=== PATIENT | female | born 1970 | race Caucasian/White ===

== ENCOUNTER 2019-06-05 11:20 | Emergency (ER) | payer MEDICAID, OTHER, SELFPAY ==
[~2019-06-05] VITALS: Ht 172.7 cm; Wt 70.0 kg
[2019-06-05 12:10] LABS: BASOPHILS # (AUTO) 0.02 x10^3/uL (0-0.1); BASOPHILS % (AUTO) 0 % (0-1); EOSINOPHILS # (AUTO) 0.02 x10^3/uL (0-0.4); EOSINOPHILS % (AUTO) 0 % (1-7); LYMPHOCYTES # (AUTO) 1.26 x10^3/uL (1-3.4); LYMPHOCYTES % (AUTO) 15 % (22-44); MD NO; MEAN CORPUSCULAR HEMOGLOBIN 31.8 pg (27.0-34.8); MEAN CORPUSCULAR HGB CONC 34.4 g/dL (32.4-35.8); MEAN CORPUSCULAR VOLUME 92.3 fL (80-100); MEAN PLATELET VOLUME 7.6 fL (7.4-10.4); MONOCYTES # (AUTO) 0.59 x10^3/uL (0.2-0.8); MONOCYTES % (AUTO) 7 % (2-9); NEUTROPHILS # (AUTO) 6.44 x10^3/uL (1.8-6.8); NEUTROPHILS % (AUTO) 77 % (42-75); PLATELET COUNT 418 x10^3/uL (130-400); RED BLOOD COUNT 4.32 x10^6/uL (3.82-5.3); RED CELL DISTRIBUTION WIDTH 13.2 % (9.6-15.2)
[2019-06-05 12:17] LABS: ALBUMIN 4.4 g/dL (3.4-5.0); ANION GAP 12 mmol/L (5-15); CALCIUM 9.4 mg/dL (8.5-10.1); CHLORIDE 108 mmol/L (98-107); SALICYLATE LEVEL 1.9 mg/dL (2.8-20.0)
[2019-06-05 12:24] LABS: CREATININE 0.86 mg/dL (0.55-1.02)
--- NOTE | 2019-06-05 12:24 | NUR ---
psych nurse at bedside.
[2019-06-05] MEDS ORDERED: OLANZAPINE 5 MG TABLET ONE ×2 (12:44→21:36)
[2019-06-05] MEDS ORDERED: hydrOXyzine 50MG TABLET ONE (12:44)
[2019-06-05] MEDS: OLANZAPINE 5 MG TABLET PO SCH ×2 (12:46→21:43)
[2019-06-05] MEDS ORDERED: HYDROXYZINE PAMOATE 50MG CAP PO PRN (13:00)
[2019-06-05] MEDS ORDERED: TRAZODONE 50MG TABLET PO PRN (13:00)
[2019-06-05 13:01] LABS: AMPHETAMINE SCREEN, URINE Negative (Negative); BARBITURATE SCREEN, URINE Negative (Negative); BENZODIAZEPINE SCREEN, URINE Positive (Negative); CANNABINOID SCREEN, URINE Negative (Negative); COCAINE SCREEN, URINE Negative (Negative); METHADONE SCREEN, URINE Negative (Negative); OPIATE SCREEN, URINE Negative (Negative)
--- NOTE | 2019-06-05 13:24 | NUR ---
BREAK RN: PT UPRIGHT ON GURNEY AWAKE, CALM & COOPERATIVE, WATCHING TV, ATE MEAL TRAY, RESPONDS APPROP TO STAFF, NAD, NO NEEDS AT THIS TIME, PT REMAINS IN SAFE ENVIRONMENT, SITTER IN VIEW.
--- NOTE | 2019-06-05 14:45 | NUR ---
PT WATCHING TV QUIETLY
--- NOTE | 2019-06-05 18:08 | NUR ---
PACKET FAXED TO [facility]
--- NOTE | 2019-06-05 18:25 | NUR ---
friend that pt lives with called and left her number: austin [phone]
--- NOTE | 2019-06-05 19:14 | NUR ---
Pt resting in room, nadn, Pt has equal chest rise and brisk cap refill. Pt has sitter outside room for continous safety monitoring.
--- NOTE | 2019-06-05 20:13 | NUR ---
Pt resting in room, nadn, Pt has equal chest rise and brisk cap refill. Pt has sitter outside room for continous safety monitoring.
--- NOTE | 2019-06-05 21:50 | NUR ---
Pt resting in room, nadn, Pt has equal chest rise and brisk cap refill. Pt has sitter outside room for continous safety monitoring. Pt medicated per emar.
--- NOTE | 2019-06-06 00:09 | NUR ---
REPORT TO CRUZ EDDY.
--- NOTE | 2019-06-06 02:00 | NUR ---
PT RESTING IN BED, PT ROOM IS SI SECURE WITH SITTER AT PT BED SIDE?
--- NOTE | 2019-06-06 04:00 | NUR ---
PT SLEEPING IN BED, PT ROOM IS SI SECURE WITH SITTER AT PT BED SIDE?
--- NOTE | 2019-06-06 05:25 | NUR ---
PT RESTING IN BED, PT ROOM IS SI SECURE WITH SITTER AT PT BED SIDE?
--- NOTE | 2019-06-06 06:35 | NUR ---
PT RESTING IN BED, PT ROOM IS SI SECURE WITH SITTER AT PT BED SIDE?
--- NOTE | 2019-06-06 07:10 | NUR ---
REPORT RECIEVED FROM NOC RN, PT RESTING COMFORTABLY ON HOSPITAL BED. MEAL TRAY ORDERED, NAD NOTED
[2019-06-06] MEDS ORDERED: OLANZAPINE 5 MG TABLET ONE (08:06)
[2019-06-06] MEDS: OLANZAPINE 5 MG TABLET PO SCH (08:20)
[2019-06-06 08:21] VITALS: BP 133/84
--- NOTE | 2019-06-06 08:21 | NUR ---
PT MEDICATED PER MAR. GIVEN MEAL TRAY. VSS, SI PRECAUTIONS OBSERVED
--- NOTE | 2019-06-06 10:20 | NUR ---
Michael at [facility] accepting patient. Accepting Dr. Novoa Request 12:30 transfer
--- NOTE | 2019-06-06 10:24 | NUR ---
REPORT GIVEN TO RECTERESO RN, TRASPORT TO COME AT [id number]
--- NOTE | 2019-06-06 12:55 | NUR ---
REMSA HERE TO GUIDE CHANGER PT. PT GIVEN TWO BAGS, VERIFIED THESE ARE ALL OF PT BELONGINGS
== END 2019-06-06 13:02 ==
LOC: ED 15:31
DX: F23 Brief psychotic disorder (principal); F31.9 Bipolar disorder, unspecified
CPT/HCPCS: 36415; 80048; 80307; 82040; 84703; 85025; 99285